=== PATIENT | female | born 1985 ===

== ENCOUNTER 2018-05-23 12:26 | Emergency (ER) | payer MEDICAID ==
[2018-05-23 12:26] VITALS: BMI 25.9
--- NOTE | 2018-05-23 12:40 | C.PDOC ---
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 Patient reports that she was treated previously with Xanax and counseling, but stopped because she thought she was getting better. She reports that 3 weeks ago she was arguing with the father of her child. She states that when she gets anxious it is hard for it to go away on its own, but typically takes deep breaths and speaks to her mother. She denies any SI/HI or hallucinations. Of note, patient was tearing as she was telling her story. Time Seen by Provider: 05/23/18 12:36 Chief Complaint (Nursing): Anxiety History Per: Patient History/Exam Limitations: no limitations Onset/Duration Of Symptoms: Mins Current Symptoms Are (Timing): Better Suicide/Self Injury Attempted (Context): None Associated Symptoms: Anxiety, Agitation, Depression. denies: Suicidal Thoughts, Suicidal Plan Past Medical History Reviewed: Historical Data, Nursing Documentation, Vital Signs - Medical History PMH: Anxiety, Depression, Gastritis, Seizures Surgical History: Appendectomy - [facility] Procedures EXTRACTION OF POC, LOW CERVICAL, OPEN APPROACH (11/28/14) FLUOROSCOPY OF R JUGULAR VEIN USING OT CONTRAST, GUIDANCE (11/28/14) INSERT INFUSION DEV IN R INT JUGULAR VEIN, PERC (11/28/14) INTRODUCTION OF SERUM/TOX/VACCINE INTO MUSCLE, PERC APPROACH (11/28/14) Family History: States: Unknown Family Hx - Social History Hx Tobacco Use: No Hx Alcohol Use: No Hx Substance Use: No - Immunization History Hx Tetanus Toxoid Vaccination: No Hx Influenza Vaccination: No Hx Pneumococcal Vaccination: No Review Of Systems Constitutional: Negative for: Fever, Chills Cardiovascular: Negative for: Palpitations Respiratory: Negative for: Shortness of Breath Gastrointestinal: Negative for: Nausea, Vomiting, Abdominal Pain Musculoskeletal: Negative for: Neck Pain Neurological: Negative for: Weakness, Headache, Dizziness Psych: Positive for: Anxiety. Negative for: Suicidal ideation Physical Exam - Physical Exam Appears: Non-toxic, No Acute Distress Skin: Normal Color, Warm, Dry, No Diaphoretic Head: Atraumatic, Normacephalic Eye(s): bilateral: Normal Inspection, PERRL Ear(s): Bilateral: Normal Nose: No Flaring Oral Mucosa: Moist Throat: No Erythema, No Exudate Neck: Normal ROM, Supple Chest: Symmetrical Cardiovascular: Rhythm Regular Respiratory: Normal Breath Sounds, No Wheezing Gastrointestinal/Abdominal: Soft, No Tenderness Neurological/Psych: Oriented x3, Normal Speech, Normal Motor, Normal Sensation Gait: Steady Medical Decision Making Medical Decision Making: Yan Smith saw patient at bedside and referred her to [facility] for Anxiety Vital signs are stable and she isn't tachycardic She is stable for discharge Disposition Counseled Patient/Family Regarding: Diagnosis, Need For Followup - Disposition Referrals: [facility] [Outside] Disposition: HOME/ ROUTINE Disposition Time: 13:30 Condition: STABLE Additional Instructions: Follow up in [facility] for further counseling/therapy/ meds management Return to the ED if symptoms worsen Instructions: Anxiety, Adult (DC) Forms: [employer] (Occitan) Print Language: DANISH - Clinical Impression Clinical Impression: Anxiety disorder - 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
[2018-05-23 12:49] VITALS: TEMP 98.2
[2018-05-23 13:31] VITALS: BP 103/65; PULSE 79; RESP 14; O2SAT 97
== END 2018-05-23 13:35 | disposition home or self-care (01) ==
LOC: C.ER 12:26
DX: F41.9 Anxiety disorder, unspecified (principal)

== ENCOUNTER 2018-06-03 15:16 | Emergency (ER) | payer MEDICAID ==
[2018-06-03 15:17] VITALS: BMI 25.9
--- NOTE | 2018-06-03 16:53 | C.PDOC ---
History Of Present Illness Patient reports long history of anxiety and depression, currently takes sertraline for depression but has been taken off her anxiety medication as she was previously feeling better. However today she acutely experienced a sense of panic, so she called EMS who brought her to the ED. She reports that her sense of panic has since improved. Denies SI/HI, substance abuse, or medical complaints. Time Seen by Provider: 06/03/18 15:31 Chief Complaint (Nursing): Medical Clearance History Per: Patient History/Exam Limitations: no limitations Onset/Duration Of Symptoms: Intermittent Episodes Current Symptoms Are (Timing): Better Past Medical History Reviewed: Historical Data, Nursing Documentation, Vital Signs Vital Signs: Last Vital Signs Temp 97.9 F 06/03/18 15:27 Pulse 87 06/03/18 15:27 Resp 18 06/03/18 15:27 BP 111/68 06/03/18 15:27 Pulse Ox 97 06/03/18 15:27 - Medical History PMH: Anxiety, Depression, Gastritis, Seizures Surgical History: Appendectomy - [facility] Procedures EXTRACTION OF POC, LOW CERVICAL, OPEN APPROACH (11/28/14) FLUOROSCOPY OF R JUGULAR VEIN USING [facility] CONTRAST, GUIDANCE (11/28/14) INSERT INFUSION DEV IN R INT JUGULAR VEIN, PERC (11/28/14) INTRODUCTION OF SERUM/TOX/VACCINE INTO MUSCLE, PERC APPROACH (11/28/14) Family History: States: Unknown Family Hx - Social History Hx Tobacco Use: No Hx Alcohol Use: No Hx Substance Use: No - Immunization History Hx Tetanus Toxoid Vaccination: No Hx Influenza Vaccination: No Hx Pneumococcal Vaccination: No Review Of Systems Except As Marked, All Systems Reviewed And Found Negative. Constitutional: Negative for: Fever, Chills Cardiovascular: Negative for: Chest Pain, Palpitations Respiratory: Negative for: Shortness of Breath Gastrointestinal: Negative for: Nausea, Vomiting Neurological: Negative for: Confusion, Altered Mental Status Psych: Positive for: Anxiety, Depression. Negative for: Suicidal ideation Physical Exam - Physical Exam Appears: No Acute Distress Skin: Normal Color, Warm, Dry Head: Atraumatic, Normacephalic Eye(s): bilateral: Normal Inspection Oral Mucosa: Moist Cardiovascular: Rhythm Regular Respiratory: Normal Breath Sounds Gastrointestinal/Abdominal: Normal Exam Extremity: No Deformity, No Swelling Neurological/Psych: Oriented x3, Normal Speech Gait: Steady ED Course And Treatment O2 Sat by Pulse Oximetry: 97 Medical Decision Making Medical Decision Making: Patient given 0.5mg ativan PO for anxiety. Crisis notified, will evaluate patient. Crisis evaluated patient, cleared by psychiatry for outpatient followup. Disposition - Disposition Disposition: HOME/ ROUTINE Disposition Time: 21:15 Condition: STABLE Additional Instructions: JESUS MANUEL KOO, thank you for letting us take care of you today. Your provider was Ambreen Jarrell MD and you were treated for ANXIETY. The emergency medical care you received today was directed at your acute symptoms. If you were prescribed any medication, please fill it and take as directed. It may take several days for your symptoms to resolve. Return to the Emergency Department if your symptoms worsen, do not improve, or if you have any other problems. Please contact your doctor or call one of the physicians/clinics you have been referred to that are listed on the Patient Visit Information form that is included in your discharge packet. Bring any paperwork you were given at discharge with you along with any medications you are taking to your follow up visit. Our treatment cannot replace ongoing medical care by a primary care provider outside of the emergency department. Thank you for allowing the [facility] team to be part of your care today. If you had an X-Ray or CT scan: A Radiologist will review the ED reading if any change in treatment is needed we will contact you. If you had a blood, urine, or wound culture: It will take several days for the results, if any change in treatment is needed we will contact you. If you had an STI test: It will take 48 hours for the results. Please call after 1 week if you have not heard back. Instructions: Anxiety, Adult (DC) Forms: [employer] (Citizen [place]) - Clinical Impression Clinical Impression: Anxiety
[2018-06-03 20:29] VITALS: RESP 20
[2018-06-03 20:43] VITALS: BP 113/72; PULSE 88; TEMP 97.7
[2018-06-03 21:33] VITALS: O2SAT 97
== END 2018-06-03 21:30 | disposition home or self-care (01) ==
LOC: C.ER 15:16
DX: F41.9 Anxiety disorder, unspecified (principal); F32.9 Major depressive disorder, single episode, unspecified